=== PATIENT | female | born 1955 | race Caucasian/White ===

== ENCOUNTER 2017-04-24 15:48 | Emergency (ER) | payer BC ==
--- NOTE | 2017-04-24 15:58 | UC ---
Throat Pain/Nasal Timothy HPI - HPI Summary HPI Summary: 61 YEAR OLD FEMALE PRESENTS WITH COMPLAINS OF SORE THROAT. - History of Current Complaint Stated Complaint: SORE THROAT COUGH Time Seen by Provider: 04/24/17 15:58 Hx Obtained From: Patient Onset/Duration: Lasting Hours Severity: Moderate Pain Scale Used: 0-10 Numeric - 7 - Allergies/Home Medications Allergies/Adverse Reactions: Allergies Allergy/AdvReac Type Severity Reaction Status Date / Time No Known Allergies Allergy Verified 04/24/17 16:14 PMH/Surg Hx/FS Hx/Imm Hx Previously Healthy: Yes - Surgical History Surgical History: Yes Surgery Procedure, Year, and Place: Hysterectomy, 1986, [facility] - Family History Known Family History: Positive: None, Cardiac Disease, Hypertension - Social History Alcohol Use: None Substance Use Type: None Smoking Status (MU): Former Smoker Type: Cigarettes Amount Used/How Often: 1 PPD Length of Time of Smoking/Using Tobacco: 30 Years Have You Smoked in the Last Year: No When Did the Patient Quit Smoking/Using Tobacco: 2006 Review of Systems Constitutional: Negative Skin: Negative Eyes: Negative ENT: Sore Throat, Nasal Discharge, Sinus Congestion, Sinus Pain/Tenderness Respiratory: Cough Cardiovascular: Negative Gastrointestinal: Negative Genitourinary: Negative Motor: Negative Neurovascular: Negative Musculoskeletal: Negative Neurological: Negative Psychological: Negative All Other Systems Reviewed And Are Negative: Yes Physical Exam Triage Information Reviewed: Yes Eye Exam: Normal ENT: Positive: Pharyngeal erythema, Nasal congestion, Nasal drainage Dental Exam: Normal Neck exam: Normal Neck: Positive: 1 Respiratory: Positive: Wheezing Cardiovascular Exam: Normal Abdominal Exam: Normal Musculoskeletal Exam: Normal Neurological Exam: Normal Psychological Exam: Normal Skin Exam: Normal Throat Pain/Nasal Course/Dx - Differential Dx/Diagnosis Provider Diagnoses: PHARYNGITIS. ALLERGIC RHINITIS Discharge - Discharge Plan Condition: Stable Disposition: HOME Prescriptions: Amoxicillin/Clavulanate TAB* [Augmentin TAB 875*] 875 mg PO BID #20 tab LoraTADine TAB(NF) [Claritin 10 MG TAB(NF)] 10 mg PO DAILY #30 tab Magic M W2 Sree/Maal/Nyst/Lido* 5 ml SWISH SPIT QID PRN #120 ml PRN Reason: Pain guaiFENesin/CODIEN 100MG-10MG* [Robitussin AC 100Mg-10Mg*] 5 ml PO Q8H PRN #120 udc MDD 15 ML PRN Reason: Cough Patient Education Materials: Pharyngitis (ED) Referrals: Nj Callahan DO [Primary Care Provider] -
[2017-04-24 16:14] VITALS: BP 135/93
== END 2017-04-24 16:42 | disposition home or self-care (01) ==
LOC: UCCORT 15:48
DX: J02.9 Acute pharyngitis, unspecified (principal); J30.9 Allergic rhinitis, unspecified; Z87.891 Personal history of nicotine dependence
CPT/HCPCS: 87651; 99212; G0463

== ENCOUNTER 2017-07-31 09:56 | Emergency (ER) | payer BC ==
--- NOTE | 2017-07-31 10:47 | UC ---
Eye Complaint HPI - HPI Summary HPI Summary: 61 y/o female presents to the urgent care c/o Rt eye pain since yesterday when her bird poked her in the eye with his beak. Pt reports she has photophobia, specially when she goes outside. Pain is 3/10, mostly with foreign body sensation and clear eye discharge. Pt wears reading glasses. Bird is about 10cm in size. Pt denies fever, dizziness, SOB, GILMORE, chest pain, N/V/D - History of Current Complaint Stated Complaint: RIGHT EYE COMPLAINT Time Seen by Provider: 07/31/17 10:30 Hx Obtained From: Patient ?: No Onset/Duration: Sudden Onset, Lasting Days - 1 day, Still Present Timing: Constant Severity Initially: Mild Severity Currently: Mild Pain Intensity: 3 Pain Scale Used: 0-10 Numeric Location of Injury: Globe Character: Foreign Body Sensation Aggravating Factor(s): Light Alleviating Factor(s): Nothing Associated Signs And Symptoms: Positive: Photophobia, Drainage (Clear), Vision Impairment Bilateral. Negative: Fever - Risk Factors Penetrating Injury Risk Factor: Negative Globe Rupture Risk Factors: Negative Acute Glaucoma Risk Factors: Negative Optic Artery Occlusion Risk Factors: Negative - Allergies/Home Medications Allergies/Adverse Reactions: Allergies Allergy/AdvReac Type Severity Reaction Status Date / Time No Known Allergies Allergy Verified 07/31/17 10:49 PMH/Surg Hx/FS Hx/Imm Hx Previously Healthy: Yes Endocrine History: Hypothyroidism, Dyslipidemia Other Endocrine History: Osteoarthritis GI/ History: Gastroesophageal Reflux - Surgical History Surgical History: Yes Surgery Procedure, Year, and Place: Hysterectomy, 1986, [facility] - Family History Known Family History: Positive: None, Cardiac Disease, Hypertension - Social History Occupation: Employed Full-time Lives: With Family Alcohol Use: None Substance Use Type: None Smoking Status (MU): Former Smoker Type: Cigarettes Amount Used/How Often: 1 PPD Length of Time of Smoking/Using Tobacco: 30 Years Have You Smoked in the Last Year: No When Did the Patient Quit Smoking/Using Tobacco: 2006 Review of Systems Constitutional: Negative Skin: Negative Eyes: Drainage, Photophobia - s/p RT eye injury with her bird's beak ENT: Negative Respiratory: Negative Cardiovascular: Negative Gastrointestinal: Negative Genitourinary: Negative Motor: Negative Neurovascular: Negative Musculoskeletal: Negative Neurological: Negative Psychological: Negative Is Patient Immunocompromised?: No All Other Systems Reviewed And Are Negative: Yes Physical Exam Triage Information Reviewed: Yes - Additional Comments Vital Signs Reviewed: Yes General: Well appearing, well nourished female sitting in the examining table w/ o any apparent distress Eyes: RT eye with conjunctiva clear, sclera is white, lateral side of sclera with mild brownish erythema, clear eye discharge observed. LF eye clear and white sclera. B/L eyes PERRLA, EOMI w/o any nystagmus or strabismus. Fundi appears benign. Disks are well delineated. There are no hemorrhages or exudates. Visual acuity is bilaterally, and visual joshi are within normal limits.Peripheral vison WNL . One eyelash removed under the Rt upper eyelid with a cotton swab. ENT: Positive: Normal ENT inspection, Hearing grossly normal, Pharynx normal, Nasal congestion, Nasal drainage - clear, TMs normal - B/L external ear canal clear , TM's WNL. Negative: Tonsillar swelling, Tonsillar exudate Neck: Positive: Supple, Nontender, No Lymphadenopathy Respiratory: Positive: Chest nontender, Lungs clear, Normal breath sounds, No respiratory distress Cardiovascular: Positive: RRR, No Murmur, Pulses Normal, Brisk Capillary Refill Abdomen Description: Positive: Nontender, No Organomegaly, Soft. Negative: CVA Tenderness (R), CVA Tenderness (L) Bowel Sounds: Positive: Present Musculoskeletal: Positive: Strength Intact, ROM Intact, No Edema Neurological Exam: Normal Psychological Exam: Normal Skin Exam: Normal Eye Complaint Course/Dx - Course Course Of Treatment: 61 y/o female presents to the urgent care c/o Rt eye pain since yesterday when her bird poked her in the eye with his beak. Pt reports she has photophobia, specially when she goes outside. Pain is 3/10, mostly with foreign body sensation and clear eye discharge. Pt wears reading glasses. Bird is about 10cm in size. Pt denies fever, dizziness, SOB, GILMORE, chest pain, N/V/D. Hx obtained. One eyelashed removed from the RT upper eyelid with cotton swab. 2 drops of Tetracaine optha drops placed on Pts Rt eye, then irrigated with saline drops to flush any foreign particles, then fluorescein instillation and examination with a UV lamp. Positive corneal ulcer observed at 12 oclock. After procedure Pt was able to open her eye and tolerated a little bit the light. Pt Applied 2 drops of ciprofloxacin opthalmic drops at the clini and dispense the rest. Given a Opthalmologist referral with Dr Villafana and advised to make an appt as soon as possible for further management. Pt understood and agreed with plan of care. Pt left the clinic ambulating and feeling better - Differential Dx/Diagnosis Differential Diagnosis/HQI/PQRI: Conjunctivitis, Corneal Abrasion, Foreign Body , Keratitis, Orbital Cellulitis, Other - corneal ulcer Provider Diagnoses: 1- Rt eye pain s/p injury. 2-RT eye corneal ulcer Discharge - Discharge Plan Condition: Stable Disposition: HOME Patient Education Materials: Corneal Abrasion (ED), Corneal Ulcer (ED) Referrals: Griselda Villafana MD [Medical Doctor] - As Soon As Possible Non Staff,Doctor [Primary Care Provider] - 2 Days Additional Instructions: 1-Please apply ophthalmic drops as instructed until you f/u with your [facility]. 2- PLease F/u as soon as possible with Dr Villfaana [facility] for further evaluation and treatment. Please avoid rubbing your eyes
[2017-07-31 10:49] VITALS: BP 130/76
[2017-07-31] MEDS ORDERED: Tetracaine 0.5% OPTH.SOL 4 ML* 1 DROP BTL ONE (10:52)
[2017-07-31] MEDS ORDERED: Fluorescein Sodium TOPICAL* 1 MG TEST ONE (10:52)
[2017-07-31] MEDS ORDERED: Fluorescein Sodium TOPICAL* 1 MG TEST OPHTHALMIC ONE (10:52)
[2017-07-31] MEDS ORDERED: BSS OPTH.SOL* BTL ONE (10:52)
[2017-07-31] MEDS ORDERED: Ciprofloxacin 0.3% OPTH.SOL* 2.5 ML BTL RIGHT EYE ONE ×2 (11:24→11:29)
== END 2017-07-31 11:47 | disposition home or self-care (01) ==
LOC: UCCORT 09:56
DX: H57.11 Ocular pain, right eye (principal); H16.001 Unspecified corneal ulcer, right eye; E03.9 Hypothyroidism, unspecified; E78.5 Hyperlipidemia, unspecified; K21.9 Gastro-esophageal reflux disease without esophagitis; Z90.710 Acquired absence of both cervix and uterus; Z87.891 Personal history of nicotine dependence
CPT/HCPCS: 99212; A9270-GY; G0463

== ENCOUNTER 2017-09-22 15:09 | Emergency (ER) | payer BC ==
[2017-09-22 15:28] VITALS: BP 141/89
--- NOTE | 2017-09-22 15:59 | UC ---
UC Dental HPI - HPI Summary HPI Summary: 61 yo female with severe dental pain /swelling x 1-2 days no fever has appt with dentist tomorrow - History of Current Complaint Chief Complaint: UCDentalProblem Stated Complaint: MOUTH COMPLAINT Time Seen by Provider: 09/22/17 15:46 Hx Obtained From: Patient Onset/Duration: Sudden Onset, Resolved Severity: Severe Pain Intensity: 9 Pain Scale Used: 0-10 Numeric Aggravating Factor(s): Heat, Cold, Chewing Alleviating Factor(s): Nothing Related History: Swelling - Allergies/Home Medications Allergies/Adverse Reactions: Allergies Allergy/AdvReac Type Severity Reaction Status Date / Time No Known Allergies Allergy Verified 09/22/17 15:25 Home Medications: Home Medications Nabumetone TAB* [Relafen TAB*] 500 mg PO BID 09/22/17 [History Confirmed ] Simvastatin [Zocor] 40 mg PO DAILY 09/22/17 [History Confirmed 09/22/17] PMH/Surg Hx/FS Hx/Imm Hx Previously Healthy: Yes - Surgical History Surgical History: Yes Surgery Procedure, Year, and Place: Hysterectomy, 1986, [facility] - Family History Known Family History: Positive: Cardiac Disease, Hypertension - Social History Alcohol Use: None Substance Use Type: None Smoking Status (MU): Former Smoker Type: Cigarettes Amount Used/How Often: 1 PPD Length of Time of Smoking/Using Tobacco: 30 Years Have You Smoked in the Last Year: No When Did the Patient Quit Smoking/Using Tobacco: 2006 Review of Systems Constitutional: Negative Skin: Negative Eyes: Negative ENT: Dental Pain Respiratory: Negative Cardiovascular: Negative Gastrointestinal: Negative Genitourinary: Negative Motor: Negative Neurovascular: Negative Musculoskeletal: Negative Neurological: Negative Psychological: Negative Is Patient Immunocompromised?: No All Other Systems Reviewed And Are Negative: Yes Physical Exam Triage Information Reviewed: Yes Appearance: Well-Appearing, No Pain Distress, Well-Nourished Vital Signs: Initial Vital Signs Temp 98 F 09/22/17 15:21 Pulse 86 09/22/17 15:21 Resp 16 09/22/17 15:21 BP 141/89 09/22/17 15:21 Pulse Ox 100 09/22/17 15:21 Vital Signs Reviewed: Yes Eyes: Positive: Conjunctiva Clear ENT: Positive: Hearing grossly normal, Dental tenderness, Uvula midline. Negative: Nasal congestion, Nasal drainage, Trismus, Muffled voice Dental Exam: Other - see image Neck: Positive: Supple, Nontender, No Lymphadenopathy Respiratory: Positive: Lungs clear, Normal breath sounds, No respiratory distress, No accessory muscle use Cardiovascular: Positive: RRR, No Murmur Musculoskeletal: Positive: ROM Intact, No Edema Neurological Exam: Normal Neurological: Positive: Alert Psychological Exam: Normal Skin Exam: Normal Dental Complaint Course/Dx - Differential Dx/Diagnosis Provider Diagnoses: dental abscess Discharge - Discharge Plan Condition: Stable Disposition: HOME Prescriptions: Penicillin VK 500 MG TAB(NF) [Penicillin VK 500 mg Tab] 500 mg PO QID #28 tab traMADol TAB* [Ultram*] 50 mg PO Q6HR PRN #12 tab MDD 4 PRN Reason: Pain Patient Education Materials: Dental Abscess (ED) Referrals: Sondra Streeter [Primary Care Provider] - Additional Instructions: see dentist tomorrow as planned Images Dental: 1 - swollen, 7-10 tender
== END 2017-09-22 16:02 | disposition home or self-care (01) ==
LOC: UCCORT 15:09
DX: K04.7 Periapical abscess without sinus (principal); Z87.891 Personal history of nicotine dependence
CPT/HCPCS: 99212; G0463

== ENCOUNTER 2017-09-24 07:41 | Emergency (ER) | payer BC ==
[2017-09-24 08:00] VITALS: BP 126/71
[2017-09-24] MEDS ORDERED: HYDROcodone/ACETAMIN 5-325 MG* 1 TAB PO ONE (08:21)
[2017-09-24] MEDS ORDERED: Clindamycin CAP* 150 MG PO ONE (08:21)
--- NOTE | 2017-09-24 08:22 | UC ---
UC Dental HPI - HPI Summary HPI Summary: dental pain and swelling has been on PCN for 2 days and has not gotten better--- Ultram gives her a headache - History of Current Complaint Chief Complaint: UCDentalProblem Stated Complaint: DENTAL PAIN Time Seen by Provider: 09/24/17 08:16 Hx Obtained From: Patient ?: No Onset/Duration: Sudden Onset, Lasting Days - 2, Still Present Severity: Severe Pain Intensity: 8 Pain Scale Used: 0-10 Numeric Aggravating Factor(s): Chewing Alleviating Factor(s): Nothing Related History: Previous Dental Care on Same Tooth, Swelling - Allergies/Home Medications Allergies/Adverse Reactions: Allergies Allergy/AdvReac Type Severity Reaction Status Date / Time No Known Allergies Allergy Verified 09/24/17 07:58 PMH/Surg Hx/FS Hx/Imm Hx Previously Healthy: No Endocrine History: Hypothyroidism, Dyslipidemia GI/ History: Gastroesophageal Reflux - Surgical History Surgical History: Yes Surgery Procedure, Year, and Place: Hysterectomy, 1986, [facility] - Family History Known Family History: Positive: None, Cardiac Disease, Hypertension - Social History Occupation: Employed Full-time Lives: With Family Alcohol Use: None Substance Use Type: None Smoking Status (MU): Former Smoker Type: Cigarettes Amount Used/How Often: 1 PPD Length of Time of Smoking/Using Tobacco: 30 Years Have You Smoked in the Last Year: No When Did the Patient Quit Smoking/Using Tobacco: 2006 Cessation Counseling: Patient Advised to Stop Review of Systems Constitutional: Negative Skin: Negative Eyes: Negative ENT: Dental Pain Respiratory: Negative Cardiovascular: Negative Gastrointestinal: Negative Genitourinary: Negative Motor: Negative Neurovascular: Negative Musculoskeletal: Negative Neurological: Negative Psychological: Negative Is Patient Immunocompromised?: No All Other Systems Reviewed And Are Negative: Yes Physical Exam Triage Information Reviewed: Yes Appearance: Well-Appearing, Well-Nourished, Pain Distress Vital Signs: Initial Vital Signs Temp 98 F 09/24/17 07:56 Pulse 93 09/24/17 07:56 Resp 16 09/24/17 07:56 BP 126/71 09/24/17 07:56 Pulse Ox 98 09/24/17 07:56 Vital Signs Reviewed: Yes Eye Exam: Normal Eyes: Positive: Conjunctiva Clear ENT Exam: Normal ENT: Positive: Normal ENT inspection, Hearing grossly normal, Pharynx normal, TMs normal, Uvula midline. Negative: Nasal congestion, Tonsillar swelling, Tonsillar exudate, Trismus, Muffled voice, Hoarse voice, Dental tenderness, Sinus tenderness Dental: Positive: Percussion Tenderness @ - number 10, Abscess @ - above Neck exam: Normal Neck: Positive: Supple, Nontender, No Lymphadenopathy Respiratory Exam: Normal Respiratory: Positive: Chest non-tender, Lungs clear, Normal breath sounds, No respiratory distress Cardiovascular Exam: Normal Cardiovascular: Positive: RRR, No Murmur, Pulses Normal, Brisk Capillary Refill Musculoskeletal Exam: Normal Musculoskeletal: Positive: Strength Intact, ROM Intact, No Edema Neurological Exam: Normal Neurological: Positive: Alert, Muscle Tone Normal Psychological Exam: Normal Skin Exam: Normal UC Physical Exam Vital Signs On Initial Exam: Initial Vitals Temp Pulse Resp BP Pulse Ox 98 F 93 16 126/71 98 09/24/17 07:56 09/24/17 07:56 09/24/17 07:56 09/24/17 07:56 09/24/17 07:56 - Face/Dental Exam Face: Abcess Dental Tenderness: Left - #10-11 Dental Complaint Course/Dx - Course Course Of Treatment: stop pcn and ultram change to clinda mycin and hydrocodone- --continue relafen follow with dentist as planned--to ed should symptoms worsen or fail to improve in the next 24 hours - Differential Dx/Diagnosis Provider Diagnoses: Dental abscess tooth number 10&11, nicotine dependent Discharge - Discharge Plan Condition: Stable Disposition: HOME Prescriptions: Clindamycin Cap(NF) [Clindamycin Cap 300 mg Cap(NF)] 300 mg PO Q6H #39 cap Hydrocodone/Acetaminophen [Hydrocodone-Acetamin 5-325 mg] 1 each PO QID PRN #16 tablet MDD 4 PRN Reason: Pain (Dental) Patient Education Materials: Dental Abscess (ED) Forms: *Work Release Referrals: Sondra Streeter [Primary Care Provider] - Additional Instructions: Follow with dentist s planned, to ED if swelling worsens Images Dental: 1 - pain and swelling
== END 2017-09-24 08:42 | disposition home or self-care (01) ==
LOC: UCCORT 07:41
DX: K04.7 Periapical abscess without sinus (principal); F17.210 Nicotine dependence, cigarettes, uncomplicated
CPT/HCPCS: 99212; A9270-GY; G0463

== ENCOUNTER 2017-11-12 11:53 | Emergency (ER) | payer BC ==
[2017-11-12 12:47] VITALS: BP 130/67
--- NOTE | 2017-11-12 13:10 | UC ---
Throat Pain/Nasal Timothy HPI - HPI Summary HPI Summary: Patient has had sore thraot, bilateral ear pain, GILMORE and sinus congestion for the past week, now has body aches - History of Current Complaint Chief Complaint: UCEar Stated Complaint: SORE THROAT, EAR PAIN Time Seen by Provider: 11/12/17 13:01 Hx Obtained From: Patient ?: No Onset/Duration: Sudden Onset, Lasting Weeks - 1 Severity: Moderate Pain Intensity: 8 Associated Signs & Symptoms: Positive: Dysphagia, Wheezing, Sinus Discomfort, Nasal Discharge - Allergies/Home Medications Allergies/Adverse Reactions: Allergies Allergy/AdvReac Type Severity Reaction Status Date / Time No Known Allergies Allergy Verified 11/12/17 12:42 PMH/Surg Hx/FS Hx/Imm Hx Previously Healthy: Yes - Surgical History Surgical History: Yes Surgery Procedure, Year, and Place: Hysterectomy, 1986, [facility] - Family History Known Family History: Positive: None, Cardiac Disease, Hypertension - Social History Alcohol Use: None Substance Use Type: None Smoking Status (MU): Former Smoker Type: Cigarettes Amount Used/How Often: 1 PPD Length of Time of Smoking/Using Tobacco: 30 Years Have You Smoked in the Last Year: No When Did the Patient Quit Smoking/Using Tobacco: 2006 Review of Systems Constitutional: Chills Skin: Negative Eyes: Negative ENT: Sore Throat, Ear Ache, Nasal Discharge, Sinus Congestion Respiratory: Cough Cardiovascular: Negative Gastrointestinal: Negative Genitourinary: Negative Motor: Negative Neurovascular: Negative Musculoskeletal: Myalgia Neurological: Headache Psychological: Negative Is Patient Immunocompromised?: No All Other Systems Reviewed And Are Negative: Yes Physical Exam Triage Information Reviewed: Yes Appearance: Well-Nourished, Ill-Appearing, Pain Distress Vital Signs: Initial Vital Signs Temp 99.5 F 11/12/17 12:43 Pulse 100 11/12/17 12:43 Resp 18 11/12/17 12:43 BP 130/67 11/12/17 12:43 Pulse Ox 100 11/12/17 12:43 Vital Signs Reviewed: Yes Eye Exam: Normal ENT Exam: Normal ENT: Positive: Nasal congestion, Nasal drainage, TM bulging, TM dull - bilateral Dental Exam: Normal Neck exam: Normal Respiratory Exam: Normal Respiratory: Positive: Chest non-tender, Lungs clear, Normal breath sounds Cardiovascular Exam: Normal Cardiovascular: Positive: RRR, No Murmur, Pulses Normal Abdominal Exam: Normal Musculoskeletal Exam: Normal Neurological Exam: Normal Psychological Exam: Normal Skin Exam: Normal Throat Pain/Nasal Course/Dx - Course Course Of Treatment: hx obtaoned, exam performed, meds reviewed, treated for sinusitis - Differential Dx/Diagnosis Differential Diagnosis/HQI/PQRI: Otitis Media, Pharyngitis, Sinusitis, URI Provider Diagnoses: sinusitis Discharge - Sign-Out/Discharge Documenting (check all that apply): Discharge - Discharge Plan Condition: Stable Disposition: HOME Prescriptions: Amoxicillin PO (*) [Amoxicillin 875 MG (*)] 875 mg PO BID #14 tab Patient Education Materials: Sinusitis (ED) Referrals: Sondra Streeter [Primary Care Provider] - Additional Instructions: 1. increase fluid intake, warm fluids will help the post nasal drip, warm compresses to ear for pain managment 2. ibupforfen or tyenol for pain as well. 3. Get plenty of rest. follow up as needed. - Billing Disposition and Condition Condition: STABLE Disposition: HOME
[2017-11-12] MEDS ORDERED: Acetaminophen TAB* 325 MG PO ONE (13:18)
== END 2017-11-12 13:23 | disposition home or self-care (01) ==
LOC: UCCORT 11:53
DX: J32.9 Chronic sinusitis, unspecified (principal); Z87.891 Personal history of nicotine dependence
CPT/HCPCS: 99212; A9270-GY; G0463

== ENCOUNTER 2018-07-20 18:10 | Emergency (ER) | payer BC ==
[2018-07-20 20:13] VITALS: BP 127/76
--- NOTE | 2018-07-20 20:29 | UC ---
Respiratory Complaint HPI - HPI Summary HPI Summary: Pt c/o gradual onset of nasal and chest congestion, "raspy voice", cough and generalized fatigue and malaise. - History of Current Complaint Chief Complaint: UCRespiratory Stated Complaint: SORE THROAT,CONGESTION Time Seen by Provider: 07/20/18 20:21 Hx Obtained From: Patient ?: No Onset/Duration: Gradual Onset, Lasting Days - x 4 days., Still Present Timing: Constant Severity Initially: Mild Severity Currently: Mild Pain Intensity: 4 Character: Cough: Nonproductive Aggravating Factors: Exertion, Deep Breaths, Recumbent Position Alleviating Factors: Nothing Associated Signs And Symptoms: Positive: URI, Nasal Congestion, Hoarseness - Risk Factors Pulmonary Embolism Risk Factors: Negative Cardiac Risk Factors: Negative Pseudomonas Risk Factors: Negative Tuberculosis Risk Factors: Negative - Allergies/Home Medications Allergies/Adverse Reactions: Allergies Allergy/AdvReac Type Severity Reaction Status Date / Time No Known Allergies Allergy Verified 07/20/18 20:13 Home Medications: Home Medications Nabumetone TAB* [Relafen TAB*] 500 mg PO DAILY 07/20/18 [History Confirmed 07/20] Oxymetazoline 0.05% NASAL SPR* [Afrin 0.05% NASAL SPRAY*] 1 spray NASAL Q12H PRN 07/20/18 [History Confirmed 07/20/18] PMH/Surg Hx/FS Hx/Imm Hx Previously Healthy: Yes - Surgical History Surgical History: Yes Surgery Procedure, Year, and Place: Hysterectomy, 1986, [facility] - Family History Known Family History: Positive: None, Cardiac Disease, Hypertension - Social History Occupation: Employed Full-time Lives: With Family Alcohol Use: None Substance Use Type: None Smoking Status (MU): Former Smoker Type: Cigarettes Amount Used/How Often: 1 PPD Length of Time of Smoking/Using Tobacco: 30 Years Have You Smoked in the Last Year: No When Did the Patient Quit Smoking/Using Tobacco: 2006 Review of Systems All Other Systems Reviewed And Are Negative: Yes Constitutional: Positive: Chills, Fatigue Skin: Positive: Negative Eyes: Positive: Negative ENT: Positive: Sore Throat, Nasal Discharge, Sinus Congestion, Sinus Pain/ Tenderness Respiratory: Positive: Cough Cardiovascular: Positive: Negative Gastrointestinal: Positive: Negative Genitourinary: Positive: Negative Motor: Positive: Negative Neurovascular: Positive: Negative Musculoskeletal: Positive: Myalgia Neurological: Positive: Headache Psychological: Positive: Negative Is Patient Immunocompromised?: No Physical Exam Triage Information Reviewed: Yes Appearance: Ill-Appearing Vital Signs: Initial Vital Signs Temp 98.7 F 07/20/18 20:08 Pulse 82 07/20/18 20:08 Resp 16 07/20/18 20:08 BP 127/76 07/20/18 20:08 Pulse Ox 99 07/20/18 20:08 Vital Signs Reviewed: Yes Eye Exam: Normal ENT: Positive: Nasal congestion Dental Exam: Normal Neck exam: Normal Respiratory Exam: Normal Cardiovascular Exam: Normal Musculoskeletal Exam: Normal Neurological Exam: Normal Psychological Exam: Normal Skin Exam: Normal UC Diagnostic Evaluation - Laboratory O2 Sat by Pulse Oximetry: 99 Respiratory Course/Dx - Differential Dx/Diagnosis Differential Diagnosis/HQI/PQRI: Bronchitis, Influenza, Laryngitis, Sinusitis Provider Diagnosis: Viral syndrome, Laryngitis Discharge - Sign-Out/Discharge Documenting (check all that apply): Patient Departure All imaging exams completed and their final reports reviewed: No Studies - Discharge Plan Condition: Stable Disposition: HOME Prescriptions: Guaifenesin/Pseudoephedrne HCl [Mucinex D ER 600-60 mg Tablet] 1 each PO Q12H # 14 tab.er.12h predniSONE TAB* [Deltasone 10 MG TAB*] 30 mg PO DAILY #12 tab Patient Education Materials: Viral Syndrome (ED), Acute Cough (ED) Referrals: Sondra Streeter [Primary Care Provider] - If Needed - Billing Disposition and Condition Condition: STABLE Disposition: Home
== END 2018-07-20 20:36 | disposition home or self-care (01) ==
LOC: UCCORT 18:10
DX: J34.9 Unspecified disorder of nose and nasal sinuses (principal); J04.0 Acute laryngitis; Z87.891 Personal history of nicotine dependence
CPT/HCPCS: 99212; G0463